=== PATIENT | male | born 1945 | race Caucasian/White ===

== ENCOUNTER 2024-06-16 08:00 | Outpatient (CLI) | payer MEDICARE ==
[2024-06-16] MEDS ORDERED: Magnevist 469MG/ML 20 ML VIAL ONE (14:44)
== END 2024-06-16 08:01 | disposition home or self-care (01) ==
LOC: CSHMRI 08:00
PROVIDERS: ATTEND Urology
DX: R97.20 Elevated prostate specific antigen [PSA] (principal); N40.1 Benign prostatic hyperplasia with lower urinary tract symptoms; Z98.890 Other specified postprocedural states; K40.90 Unilateral inguinal hernia, without obstruction or gangrene, not specified as recurrent
CPT/HCPCS: 72197; A9579